=== PATIENT | female | born 1990 | race Caucasian/White ===

== ENCOUNTER 2022-03-03 09:50 | Emergency (ER) | payer BC, MEDICAID, OTHER ==
[~2022-03-03] VITALS: Ht 175.3 cm; Wt 76.0 kg
[2022-03-03] MEDS ORDERED: ACETAMINOPHEN 325MG TABLET PO STA (10:38)
[2022-03-03] MEDS ORDERED: SODIUM CHLORIDE 0.9% 1000ML BAG (SEPSIS BOLUS) IV ONE (10:45)
[2022-03-03 10:55] LABS: HEMATOCRIT. 39.7 % (36.0-48.0); HEMOGLOBIN. 13.8 g/dL (12.0-16.0); MEAN CORPUSCULAR HEMOGLOBIN 30.7 pg (28.0-32.0); MEAN CORPUSCULAR VOLUME 88.5 fL (81.0-99.0); MEAN PLATELET VOLUME 6.9 fl (7.4-10.4); PLATELET 269 x1000/uL (130-400); RED BLOOD CELL COUNT 4.49 mill/uL (4.2-5.4); RED CELL DISTRIBUTION WIDTH 12.9 % (11.6-14.6)
[2022-03-03 11:01] LABS: HCG SCREEN NEGATIVE
[2022-03-03 11:04] LABS: CHLORIDE 104 mEq/L (98-107)
[2022-03-03 11:17] LABS: PLATELET ESTIMATE NORMAL
[2022-03-03] MEDS ORDERED: PIPERACILLIN/TAZOBACTAM 3.375GM/50ML PREMIX IV ONE (11:45)
[2022-03-03] MEDS ORDERED: PIPERACILLIN/TAZ 3.375G PREMIX 50 ML IV NR (12:45)
[2022-03-03] MEDS ORDERED: PIPERACILLIN/TAZOBACTAM 3.375GM/50ML PREMIX IV NR (12:45)
[2022-03-03 12:56] LABS: CLARITY URINE CLEAR (CLEAR); COLOR URINE DARK YELLOW (YELLOW); KETONES URINE 3+ (NEGATIVE); LEUKOCYTE ESTERASE URINE 3+ (NEGATIVE); NITRITE URINE NEGATIVE (NEGATIVE); OCCULT BLOOD URINE TRACE (NEGATIVE); PH URINE 5.5 (4.5-8.0); PROTEIN URINE NEGATIVE (NEGATIVE); SPECIFIC GRAVITY URINE 1.009 (1.005-1.030)
[2022-03-03] MEDS ORDERED: METR500T MT (14:01)
[2022-03-03 14:21] VITALS: BP 118/67
== END 2022-03-03 14:22 ==
LOC: ER 09:50 → CANBEDREQ 14:26
DX: A41.9 Sepsis, unspecified organism (principal); K81.9 Cholecystitis, unspecified; R10.33 Periumbilical pain; F12.10 Cannabis abuse, uncomplicated; F10.229 Alcohol dependence with intoxication, unspecified; Y90.0 Blood alcohol level of less than 20 mg/100 ml
CPT/HCPCS: 36415; 71045; 74176; 76705; 80053; 81003; 83605; 84703; 85025; 87040; 87086; 93005; 96361; 96365; 99291; J2543; J7030